=== PATIENT | male | born 1965 | race Caucasian/White ===

== ENCOUNTER 2017-02-05 09:25 | Emergency (ER) ==
[2017-02-05 10:19] LABS: MANUAL DIFF NEEDED? NO
[2017-02-05 10:22] LABS: BASO% 0.4 % (0.0-0.8); EOS# 0.25 X1000 (0.0-0.7); EOS% 1.9 % (0.0-10.0); HEMATOCRIT 46.2 % (42.0-52.0); HEMOGLOBIN 14.8 g/dL (14.0-18.0); IMM GRAN# 0.05 X1000 (0.0-0.04); IMM GRAN% 0.4 % (0.0-0.5); LYMPH# 3.19 X1000 (1.2-3.4); LYMPH% 24.4 % (20.5-51.1); MCH 30.8 PG (27-31); MONO# 0.91 X1000 (0.11-0.59); MPV 9.8 FL (7.4-10.4); NEUT% 65.9 % (42.2-75.2); PLT 294 X1000 (130-400); RBC 4.81 XMIL (4.7-6.1)
--- NOTE | 2017-02-05 10:34 | PROVIDER DOCUMENTATION ---
HPI-Psychological Disorder - General Chief Complaint: Psych Stated Complaint: ETOH ABUSE Time Seen by Provider: 02/05/17 10:21 Source: patient Allergies/Adverse Reactions: Patient Allergies Allergy/AdvReac Type Severity Reaction Status Date / Time codeine Allergy Intermediate "I break Verified 02/05/17 09:47 out in sweats" Penicillins Allergy Mild NAUSEA Verified 02/05/17 09:47 Home Medications: Home Medication List Medication Instructions Recorded Confirmed Last Taken Type Clonazepam [Klonopin] 0.5 mg PO BID PRN PRN 03/04/14 02/05/17 03/03/14 08:00 History Divalproex [Depakote] 500 mg PO DAILY 03/04/14 02/05/17 03/03/14 08:00 History Atorvastatin Calcium [Lipitor] 80 mg PO DAILY 02/05/17 02/05/17 Unknown History - History of Present Illness-Psych Nature of Presenting Problem: Patient presents to ER stating "I need immediate assistance." He states that he is schizophrenic/bipolar and takes his medications like he is supposed to but states "they are not working." He does drink alcohol daily about 1/2 to 1 pack beer per day. Last intake was last night and he had 6 beers. He denies illegal drugs. He does admit to auditory and visual hallucinations that tell him to hurt himself. He does have suicidal thoughts and has access to a gun which he has thought about but states "I am too chicken." He does have a history of suicidal thoughts but no action. He has been to [place] in 2010 and states he has had several psych admissions. Onset/Duration: reports: last week Timing: reports: still present Severity: reports: moderate Situational problems related to:: reports: other (mental health problems) Psychiatric Complaints: reports: agitated, depressed, hallucinating, insomnia, paranoid, restlessness, suicidal ideation Substance Use: reports: alcohol (.05-1 case of beer a day) Previous psych related hospitalizations?: Yes Patient arrived by:: private car Similar Symptoms Previously?: Yes Recently seen or treated by another doctor?: No - Suicidal Ideation Suicide Risk Assessment: male sex, depressed, drug or ETOH abuse, rational thought loss (hallucinations), schizophrenia, bi-polar, frightened friends- family Clinician's estimation of suicide risk?: uncertain risk Review of Systems - Adult - REVIEW OF SYSTEMS - ADULT Constitutional: reports: no symptoms reported Eyes: reports: no symptoms reported Ears, Nose, Mouth & Throat: reports: no symptoms reported Cardiovascular: reports: no symptoms reported Respiratory: reports: no symptoms reported Gastrointestinal: reports: no symptoms reported Genitourinary: reports: no symptoms reported Musculoskeletal: reports: no symptoms reported Integumentary: reports: no symptoms reported Neurological: reports: no symptoms reported Psychiatric: reports: see HPI, alcohol/drug dependence, emotional problems, suicidal thoughts Endocrine: reports: no symptoms reported Hematologic/Lymphatic: reports: no symptoms reported Allergic/Immunologic: reports: no symptoms reported All Other Systems: Reviewed and Negative Past History - Adult - PAST MEDICAL HISTORY-ADULT Review of Records: reports: Old Records Reviewed, Nursing Assessment Review, Medications Reviewed, Social history reviewed & non-contributory. Cardiovascular: reports: hyperlipidemia Respiratory: reports: COPD (early emphysema) Psychiatric: reports: bipolar, schizophrenia - PRIOR SURGERIES/PROCEDURES Surgical/Procedure History: reports: orthopedic (extremity) (right leg sx) - PRIOR HOSPITALIZATIONS Prior Hospitalizations: reports: psychiatric or rehab - IMMUNIZATION STATUS Childhood Immunizations: See Nurse Assessment Flu Vaccine: See Nurse Assessment - SOCIAL HISTORY Smoking: cigarettes, greater than 1 pack/day (2 ppd) Provider spent 3-5 mins advising pt. on dangers of tobacco.: Discussed manners to quit use, and f/u contacts for add'l counseling. Substance Use: alcohol (1/2 to 1 case of beer per day) Alcohol Use Frequency: every day Number of drinks per typical drinking period:: 11-15 drinks Physical Exam-Psych Focus - Physical Exam-Psych Initial Vital Signs Reviewed: Yes Appearance: appropriate appearance, appropriate insight, neat, anxious, slow to respond Neurological: alert, oriented x 3, anxious, depressed affect, flat Behavior/Eye Contact/Speech: cooperative, good eye contact, normal speech Thoughts/Hallucinations: auditory hallucinations, paranoid, visual hallucinations HENMT: normocephalic/atraumatic, moist mucous membranes Respiratory: no respiratory distress Back Exam: normal inspection Extremity: normal gait Integumentary: normal color, normal turgor, warm/dry Progress - PLAN OF CARE/RESULTS Progress/Plan/Lab Results: 1315-Patient would not cooperate with telescreening with [facility]. He states "I am scared." 1543-[facility] screened patient. Laboratory Tests 02/05/17 02/05/17 02/05/17 09:47 10:17 10:17 WBC RBC Hgb Hct MCV MCH MCHC RDW Std Deviation Plt Count MPV Immature Gran % (Auto) Neut % (Auto) Lymph % (Auto) [place] % (Auto) Eos % (Auto) Baso % (Auto) Immature Gran # (Auto) Neut # (Auto) Lymph # (Auto) [place] # (Auto) Eos # (Auto) Baso # (Auto) Sodium 139 Potassium 3.9 Chloride 99 Carbon Dioxide 26 Anion Gap 14 BUN 7 L Creatinine 0.7 Estimated GFR/1.73 m2 > 60 BUN/Creatinine Ratio 10 Glucose 103 Calculated Osmolality 276 Calcium 9.6 Total Bilirubin 0.40 AST 41 H ALT 23 Alkaline Phosphatase 110 Total Protein 7.5 Albumin 4.7 Globulin 3.0 Albumin/Globulin Ratio 2.0 Vitamin B12 > 2000 H TSH 1.42 Free T4 1.45 Urine Source Urine Color Urine Clarity Urine pH Ur Specific [place] Urine Protein Urine Ketones Urine Blood Urine Nitrite Urine Bilirubin Urine Urobilinogen Urine Microscopic RBC Urine WBC Urine Microscopic WBC Urine Bacteria Urine Glucose Salicylates < 3.00 L Urine Opiates Screen Ur Oxycodone Screen Urine Methadone Screen Acetaminophen < 1.2 L Ur Barbituates Screen Ur Tricyclics Screen Ur Phencyclidine Scrn Ur Amphetamines Screen U Methamphetamines Scrn Urine MDMA Screen U Benzodiazepines Scrn Urine Cocaine Screen U Cannabinoids Screen Plasma/Serum Ethyl Alc 02/05/17 02/05/17 02/05/17 10:17 10:17 11:30 WBC 13.05 H RBC 4.81 Hgb 14.8 Hct 46.2 MCV 96.0 MCH 30.8 MCHC 32.0 L RDW Std Deviation 13.0 Plt Count 294 MPV 9.8 Immature Gran % (Auto) 0.4 Neut % (Auto) 65.9 Lymph % (Auto) 24.4 [place] % (Auto) 7.0 Eos % (Auto) 1.9 Baso % (Auto) 0.4 Immature Gran # (Auto) 0.05 H Neut # (Auto) 8.60 H Lymph # (Auto) 3.19 [place] # (Auto) 0.91 H Eos # (Auto) 0.25 Baso # (Auto) 0.05 Sodium Potassium Chloride Carbon Dioxide Anion Gap BUN Creatinine Estimated GFR/1.73 m2 BUN/Creatinine Ratio Glucose Calculated Osmolality Calcium Total Bilirubin AST ALT Alkaline Phosphatase Total Protein Albumin Globulin Albumin/Globulin Ratio Vitamin B12 TSH Free T4 Urine Source VOIDED Urine Color YELLOW Urine Clarity CLEAR Urine pH 6.0 Ur Specific [place] 1.015 Urine Protein NEGATIVE Urine Ketones 1+(Small) A Urine Blood NEGATIVE Urine Nitrite NEGATIVE Urine Bilirubin NEGATIVE Urine Urobilinogen NORMAL Urine Microscopic RBC Not Reportable Urine WBC TRACE A Urine Microscopic WBC <10 Urine Bacteria 1+ Urine Glucose NEGATIVE Salicylates Urine Opiates Screen Ur Oxycodone Screen Urine Methadone Screen Acetaminophen Ur Barbituates Screen Ur Tricyclics Screen Ur Phencyclidine Scrn Ur Amphetamines Screen U Methamphetamines Scrn Urine MDMA Screen U Benzodiazepines Scrn Urine Cocaine Screen U Cannabinoids Screen Plasma/Serum Ethyl Alc 02/05/17 11:30 WBC RBC Hgb Hct MCV MCH MCHC RDW Std Deviation Plt Count MPV Immature Gran % (Auto) Neut % (Auto) Lymph % (Auto) [place] % (Auto) Eos % (Auto) Baso % (Auto) Immature Gran # (Auto) Neut # (Auto) Lymph # (Auto) [place] # (Auto) Eos # (Auto) Baso # (Auto) Sodium Potassium Chloride Carbon Dioxide Anion Gap BUN Creatinine Estimated GFR/1.73 m2 BUN/Creatinine Ratio Glucose Calculated Osmolality Calcium Total Bilirubin AST ALT Alkaline Phosphatase Total Protein Albumin Globulin Albumin/Globulin Ratio Vitamin B12 TSH Free T4 Urine Source Urine Color Urine Clarity Urine pH Ur Specific [place] Urine Protein Urine Ketones Urine Blood Urine Nitrite Urine Bilirubin Urine Urobilinogen Urine Microscopic RBC Urine WBC Urine Microscopic WBC Urine Bacteria Urine Glucose Salicylates Urine Opiates Screen NONE DETECTED Ur Oxycodone Screen NONE DETECTED Urine Methadone Screen NONE DETECTED Acetaminophen Ur Barbituates Screen NONE DETECTED Ur Tricyclics Screen NONE DETECTED Ur Phencyclidine Scrn NONE DETECTED Ur Amphetamines Screen NONE DETECTED U Methamphetamines Scrn NONE DETECTED Urine MDMA Screen NONE DETECTED U Benzodiazepines Scrn NONE DETECTED Urine Cocaine Screen NONE DETECTED U Cannabinoids Screen NONE DETECTED Plasma/Serum Ethyl Alc Orders Category Date Time Status CHEST-2 VIEWS [RAD] Stat Exams 02/05/17 11:35 Completed ACETAMINOPHEN [TDM] Stat Lab 02/05/17 09:47 Completed ALCOHOL BLOOD Stat Lab 02/05/17 10:17 Completed CBC WITH ELECTRONIC DIFF [HEME] Stat Lab 02/05/17 10:17 Completed COMPREHENSIVE METABOLIC PANEL [CHEM] Stat Lab 02/05/17 10:17 Completed FREE T4 Stat Lab 02/05/17 10:17 Completed SALICYLATES [TDM] Stat Lab 02/05/17 09:47 Completed TSH Stat Lab 02/05/17 10:17 Completed UDS [URINE DRUG SCREEN PL] Stat Lab 02/05/17 11:[address] W/POSS RFLX CULT [URINALYSIS] Stat Lab 02/05/17 11:30 Completed URINE CULTURE [RM] Routine Lab 02/05/17 12:[address] Stat Lab 02/05/17 10:01 Ordered VITAMIN B12 Stat Lab 02/05/17 10:17 Completed Lorazepam [Ativan] Med 02/05/17 14:34 Discontinued 1 mg IM NOW ONE EKG [EKG] Stat Ther 02/05/17 10:01 Draft - REASSESSMENT Reassessment #1 Time Reassessed: 19:00 Status: unchanged Departure - Departure Time of Disposition Order: 19:00 DIAGNOSIS: Schizo affective schizophrenia, Suicidal ideations, Hallucination Bipolar affective Qualifiers: Active/Remission status: currently active Current bipolar episode type: mixed Current episode severity: unspecified Qualified Code(s): F31.60 - Bipolar disorder, current episode mixed, unspecified Disposition: [facility] Certified Medical Emergency: Emergent Condition: Fair Referrals: Ariel Gupta [Primary Care Provider] - Attestation - Physician/ WILLEM Attestation Patient care was provided by Advanced Practice Provider:: Yes Advanced Practice Provider:: Kimberly Witt Advanced Practice Provider documentation review:: The Mid-level provider documentation, treatment plan and medical decision making was reviewed by the physician who agrees with all treatment and medical decision making by the P.
[2017-02-05 10:50] LABS: AGAP 14; ALBUMIN 4.7 g/dL (3.5-5.0); ALKALINE PHOSPHATASE 110 U/L (32-122); BUN 7 mg/dL (8-22); CALCIUM 9.6 mg/dL (8.8-10.2); CHLORIDE 99 mmol/L (98-107); COSMO 276; GOT 41 U/L (10-34); GPT 23 U/L (10-44); POTASSIUM 3.9 mmol/L (3.5-5.1); SODIUM 139 mmol/L (136-145); TCO2 26 mmol/L (25-35); TOTAL PROTEIN 7.5 g/dL (6.3-8.3)
[2017-02-05 11:05] LABS: FREE T4 1.45 ng/dL (0.93-1.70)
--- NOTE | 2017-02-05 11:11 | EKG Report ---
Test Performed on : 02/05/2017 11:01:59 AM Test Reason : Psych Blood Pressure : / mmHG Vent. Rate : 100 BPM Atrial Rate : 100 BPM P-R Int : 116 ms QRS Dur : 092 ms QT Int : 350 ms P-R-T Axes : 078 074 021 degrees QTc Int : 451 ms Normal sinus rhythm. Normal ECG No previous ECGs available Unconfirmed Result
--- NOTE | 2017-02-05 11:12 | ED EKG INTERP ---
EKG Interpretation - EKG Time of EKG reading by physician:: 11:01 EKG Read and Signed by:: Solo Stevenson EKG Interpretation (*Must complete 3 of following elements*): Normal Rate: 100 Rhythm: normal sinus rhythm Comments: normal ECG Attestation - Scribe Verification/Attestation Scribe:: Chica Soares Acting as Scribe for:: Solo Stevenson Scribe documention review:: This chart was documented by a scribe and accurately reflects the service the provider performed and the decisions made by the provider.
[2017-02-05 11:41] LABS: URINE SOURCE VOIDED
[2017-02-05 11:49] LABS: ACETAMINOPHEN < 1.2 ug/mL (10-30)
[2017-02-05 12:14] LABS: BILIRUBIN URINE NEGATIVE (NEGATIVE); BLOOD URINE NEGATIVE (NEGATIVE); CLARITY CLEAR (CLEAR); COLOR YELLOW; GLUCOSE URINE NEGATIVE (NEGATIVE); LEUKOCYTES URINE TRACE (NEGATIVE); NITRITE URINE NEGATIVE (NEGATIVE); PROTEIN URINE NEGATIVE (NEGATIVE); SP GRAVITY URINE 1.015; UROBILINOGEN URINE NORMAL
[2017-02-05 12:16] LABS: URINE CULTURE PL NEEDED? YES; URINE WBC <10 /HPF (<10)
--- NOTE | 2017-02-05 12:30 | Diag Imaging Result Document ---
PROCEDURE NAME: CHEST-2 VIEWS - 02/05/2017 CHEST X-RAY 2 VIEWS: COMPARISON: None. FINDINGS: The lungs are normally expanded and clear. Heart size and mediastinal contours are normal. No pneumothorax or pleural effusion. IMPRESSION: Negative exam.
[2017-02-05 12:35] LABS: UR AMPHETAMINES QUAL NONE DETECTED (NONE DETECT); UR BARBITUATES QUAL NONE DETECTED (NONE DETECT); UR BENZODIAZEPIN QUAL NONE DETECTED (NONE DETECT); UR CANNABINOIDS QUAL NONE DETECTED (NONE DETECT); UR COCAINE QUAL NONE DETECTED (NONE DETECT); UR MDMA QUAL NONE DETECTED (NONE DETECT); UR METHADONE QUAL NONE DETECTED (NONE DETECT); UR METHAMPHETAMINE QUAL NONE DETECTED (NONE DETECT); UR OPIATES QUAL NONE DETECTED (NONE DETECT); UR OXYCODONE QUAL NONE DETECTED (NONE DETECT); UR PCP QUAL NONE DETECTED (NONE DETECT); UR TCA QUAL NONE DETECTED (NONE DETECT)
[2017-02-05] MEDS ORDERED: ATIVAN IM ONE (14:34)
[2017-02-05 17:52] VITALS: BP 147/83
== END 2017-02-05 19:15 ==
LOC: P.ED 09:25
DX: F20.89 Other schizophrenia (principal); R45.851 Suicidal ideations; F31.60 Bipolar disorder, current episode mixed, unspecified; R44.0 Auditory hallucinations; R44.1 Visual hallucinations; E78.5 Hyperlipidemia, unspecified; J44.9 Chronic obstructive pulmonary disease, unspecified; F17.210 Nicotine dependence, cigarettes, uncomplicated; Z71.6 Tobacco abuse counseling; Z79.899 Other long term (current) drug therapy
CPT/HCPCS: 36415; 71020; 80053; 80305; 81001; 82607; 84439; 84443; 85025; 87088; 93005; 96372; G0480; J2060; 80320; 80324; 80329